=== PATIENT | male | born 2000 | race Caucasian/White ===

== ENCOUNTER 2022-09-18 15:05 | Emergency (ER) | payer MEDICAID, SELFPAY ==
[2022-09-18 15:09] VITALS: BP 108/83; PULSE 73; RESP 18; TEMP 36.5; O2SAT 100
--- NOTE | 2022-09-18 15:53 | ED.GENADUL_ITS ---
Discharge Plan Disposition Patient Disposition: Home Condition: Stable Discharge Details Clinical Impression: Acute alcoholic gastritis Primary Care Provider: Unknown,Unknown ED Provider: Leah Cm Home Meds and New Rx's Prescriptions: No Action No Known Home Meds Discharge Instructions Instructions: Gastritis (ED) Additional Instructions: Take the nausea medication three times daily as needed for nausea and vomiting. Take 20-30 minutes before eating or drinking anything. Increase oral fluids including electrolyte solution such as Gatorade or similar. Follow up with primary care provider in 3-5 days. Return to ED sooner if any worsening or concerns. Increase oral fluids. Stand Alone Forms: Work Release Medical Decision Making 22-year-old male presents to the ER with chief complaint of nausea vomiting since this morning. He reports that he initially thought it was a hangover as he did drink alcohol last night. However it has continued throughout the day. He does also complain of small amount of left upper quadrant abdominal pain mild diarrhea reports 2 episodes of diarrhea today. He endorses chills denies any fever or problems urinating or burning with urination. No history of abdominal surgeries. Work-up ordered including CBC CMP magnesium and lipase. Differential diagnosis includes acute gastritis due to alcohol consumption, pancreatitis, gastroenteritis. CBC shows slight elevation of the white blood cell count 11.21, absolute neutrophils 9.15 CMP largely within normal limits liver enzymes within normal limits, magnesium slightly low at 1.6 lipase within normal limits at 17. No evidence on labs for pancreatitis. Patient reports after fluids and Zofran he is feeling much better. We will p.o. challenge him. Plan is to discharge if p.o. challenge successful. 1657: Informed by staff nurse midwife that patient woke up and had 2 episodes of emesis. An additional 4 mg of Zofran ordered, we will hold off on the p.o. trial. And a additional liter of normal saline ordered. CT abdomen pelvis ordered. CT within normal limits. Patient discharged in hemodynamically stable condition with Zofran to go. This text was generated using [employer] system, please disregard any oddities of phrase or misspellings. Imaging Data Radiologic Study: Imaging: CT Scan Radiologist's impression: FINDINGS: Lungs: The visualized lung bases are clear. Liver: Normal. No mass. Gallbladder and bile ducts: Normal. No calcified stones. No ductal dilation. Pancreas: Normal. No ductal dilation. Spleen: Normal. No splenomegaly. Adrenal glands: Normal. No mass. Kidneys and ureters: Normal. No hydronephrosis. Stomach and bowel: Unremarkable. No obstruction. No mucosal thickening. Appendix: No evidence of appendicitis. Intraperitoneal space: Unremarkable. No free air. No significant fluid collection. Vasculature: Unremarkable. No abdominal aortic aneurysm. Lymph nodes: Unremarkable. No enlarged lymph nodes. Urinary bladder: Unremarkable as visualized. Reproductive: Unremarkable as visualized. Bones/joints: Unremarkable. No acute fracture. Soft tissues: Unremarkable. IMPRESSION: No acute findings Lab Data Lab results reviewed: Yes I reviewed the patient's lab results. Labs: Laboratory Tests Range/Units 09/18/22 09/18/22 16:00 16:00 WBC (4.4-10.8) 10^3/uL 11.21 H RBC (4.36-5.78) 10^6/uL 4.98 Hgb (13.5-17.5) g/dL 14.4 Hct (40.0-50.0) % 41.4 MCV (80-95) fL 83 MCH (27.0-33.0) pg 28.9 MCHC (32.0-36.0) % 34.8 RDW (11.8-14.1) % 12.2 Plt Count (130-400) 10^3/uL 257 MPV (8.0-11.0) fL 10.4 Immature Gran % 0.3 Neutrophils % 81.6 Lymphocytes % 11.4 Monocytes % 6.1 Eosinophils % 0.1 Basophils % 0.5 Nucleated RBC % (0.0-0.3) % 0.0 Absolute Neutrophils (1.2-6.7) 10^3/uL 9.15 H Absolute Lymphocytes (1.2-3.4) 10^3/uL 1.28 Absolute Monocytes (0.1-0.8) 10^3/uL 0.68 Absolute Eosinophils (0.0-0.7) 10^3/uL 0.01 Absolute Basophils (0.0-0.2) 10^3/uL 0.06 Sodium (136-145) mmol/L 142 Potassium (3.5-5.1) mmol/L 4.0 Chloride (98-107) mmol/L 105 Carbon Dioxide (21.0-32.0) mmol/L 25.3 Anion Gap (3-11) mmol/L 11.7 H BUN (7-18) mg/dL 15 Creatinine (0.70-1.30) mg/dL 0.9 Est GFR (CKD-EPI 2020) (mL/min/1.73m2) 122.31 Glucose (74-106) mg/dL 107 H Calcium (8.5-10.1) mg/dL 9.4 Magnesium (1.8-2.4) mg/dL 1.6 L Total Bilirubin (0.2-1.0) mg/dL 0.9 AST (15-37) U/L 21 ALT (16-63) U/L 23 Alkaline Phosphatase (46-116) U/L 41 L Total Protein (6.4-8.2) g/dL 8.1 Albumin (3.4-5.0) g/dL 4.8 Lipase (16-77) U/L 17 HPI General Mode of arrival: ambulatory . Date/Time Provider Initiated Documentation: 09/18/22 15:36 . Limitations to Documentation: no limitations . Information obtained by: patient, RN notes reviewed and old records reviewed . HPI Narrative: 22-year-old male presents to the ER with chief complaint of nausea vomiting since this morning. He reports that he initially thought it was a hangover as he did drink alcohol last night. However it has continued throughout the day. He does also complain of small amount of left upper quadrant abdominal pain mild diarrhea reports 2 episodes of diarrhea today. He endorses chills denies any fever or problems urinating or burning with urination. No history of abdominal surgeries. Related Data Home Medications Medication Instructions Recorded Confirmed Unknown [No Known Home Meds] 09/18/22 09/18/22 Allergies Allergy/AdvReac Type Severity Reaction Status Date / Time Penicillins Allergy Unknown Hives Unverified 09/18/22 15:13 General Stated Complaint: Nausea/Vomit/Diar GUERO: 3 Review of Systems All systems reviewed & are unremarkable except as noted in HPI and below Gastrointestinal Gastrointestinal: Reports abdominal pain, Reports diarrhea, Reports nausea and Reports vomiting PFSH All Active Problems (Updated 09/18/22 @ 16:56 by Leah Cm NP) Acute alcoholic gastritis (Acute) Social History Smoking risk assessment performed?: No Alcohol Intake: current Alcohol Intake frequency: holidays/special occasions only Drug use: Occasionally Substance use type: marijuana Do you feel safe at home: Yes Do you feel safe in your relationship?: Yes Exam Narrative Exam Narrative: Constitutional: Alert and oriented x3. Appears stated age. Normal body habitus. Head: Normocephalic, no trauma. Eyes: Pupils PERRL, Red reflex noted, EOM's intact. Eyelids symmetrical without lesions, discharge, or swelling. ENT: Bilateral TM's WNL, External ear normal to inspection, no mastoid TTP, swelling, or erythema, Nasal turbinates WNL, no nasal discharge. Normal dentiti on, Posterior pharynx WNL, no exudate. Chest: RRR, Normal S1, S2, distal pulses intact. Resp: Lungs clear to auscultation bilaterally, no wheezes, rales, or rhonchi. Abdomen: Soft, non-distended, Normoactive bowel sounds all 4 quads. Musculoskeletal: Normal gait, 5/5 strength to all four extremities. Skin: No suspicious rashes or lesions. Capillary refill less than 2 sec. Neurologic: Cranial nerves II-XII intact. Alert and oriented x 3. Motor: No deficits noted. Sensory: Intact bilaterally all 4 extremities. Reflexes: DTR's intact bilaterally.. Hematologic/Lymphatic: No ecchymosis, no lymphadenopathy. Course Vital Signs Vital signs: Vital Signs Temperature 36.5 C 09/18/22 15:09 Pulse 73 09/18/22 15:09 Respiratory Rate 18 09/18/22 15:09 Blood Pressure 108/83 09/18/22 15:09 Pulse Oximetry 100 09/18/22 15:09 Temperature 36.5 C 09/18/22 15:09 Temperature Source Oral 09/18/22 15:09 Pulse 73 09/18/22 15:09 Respiratory Rate 18 09/18/22 15:09 Respiratory Effort Normal, Non-Labored 09/18/22 15:13 Blood Pressure 108/83 09/18/22 15:09 Blood Pressure Position Sitting 09/18/22 15:09 Pulse Oximetry 100 09/18/22 15:09 Oxygen Delivery Method Room Air 09/18/22 15:09 Oxygen Flow Rate 0 09/18/22 15:09
[2022-09-18] MEDS: Ondansetron 4 MG/2 ML VIAL IVP ×2 (15:58→17:06)
[2022-09-18] MEDS: Normal Saline 1,000 ML 1000 ML IV ×2 (15:58→17:36)
[2022-09-18 16:12] LABS: Abs Immature Grans 0.03 10^3/uL (0.0-0.06); Absolute Basophil Count 0.06 10^3/uL (0.0-0.2); Absolute Eosinophil Count 0.01 10^3/uL (0.0-0.7); Absolute Lymphocyte Count 1.28 10^3/uL (1.2-3.4); Absolute Monocyte Count 0.68 10^3/uL (0.1-0.8); Absolute Neutrophil Count 9.15 10^3/uL (1.2-6.7); Basophils % 0.5; Eosinophils % 0.1; HCT 41.4 % (40.0-50.0); HGB 14.4 g/dL (13.5-17.5); Immature Grans % 0.3; Lymphocytes % 11.4; MCH 28.9 pg (27.0-33.0); MCHC 34.8 % (32.0-36.0); MCV 83 fL (80-95); MPV 10.4 fL (8.0-11.0); Monocytes % 6.1; Neutrophils % 81.6; Platelet Count 257 10^3/uL (130-400); RBC 4.98 10^6/uL (4.36-5.78); RDW 12.2 % (11.8-14.1); RDW-SD 37.1 fL; WBC 11.21 10^3/uL (4.4-10.8)
[2022-09-18 16:27] LABS: ALT 23 U/L (16-63); AST 21 U/L (15-37); Albumin 4.8 g/dL (3.4-5.0); Alkaline Phosphatase 41 U/L (46-116); Anion Gap 11.7 mmol/L (3-11); BUN 15 mg/dL (7-18); Bilirubin, Total 0.9 mg/dL (0.2-1.0); CO2 25.3 mmol/L (21.0-32.0); CREATININE 0.9 mg/dL (0.70-1.30); Calcium 9.4 mg/dL (8.5-10.1); Chloride 105 mmol/L (98-107); Estimated GFR 122.31 (mL/min/1.73m2); Glucose 107 mg/dL (74-106); Lipase 17 U/L (16-77); Magnesium 1.6 mg/dL (1.8-2.4); Sodium 142 mmol/L (136-145); Total Protein 8.1 g/dL (6.4-8.2)
--- NOTE | 2022-09-18 16:37 | NUR.NOTE ---
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 RN will call report.
--- NOTE | 2022-09-18 16:45 | DI.CT_ITS ---
Exam(s) CT ABDOMEN PELVIS W EXAM: CT ABDOMEN PELVIS W CLINICAL HISTORY: Abdominal pain, nausea, vomiting. TECHNIQUE: Imaging Protocol: Axial computed tomography images with coronal and sagittal reformatted images were created and reviewed CONTRAST MATERIAL: Intravenous: Omnipaque-350 100cc Oral: None COMPARISON: No exams were available for comparison FINDINGS: VISUALIZED LUNG BASES: No nodules nor pleural effusions evident. ABDOMEN: There is no ascites. LIVER: There are no focal hepatic lesions evident. No dilated intrahepatic ducts. GALLBLADDER/BILIARY: No obvious gallbladder pathology. CBD is not dilated. PANCREAS: No evidence of pancreatic mass nor dilatation of the pancreatic duct. SPLEEN: Spleen is not enlarged. No obvious intrasplenic lesions. Splenic and portal veins are paten t. ADRENALS: There are no significant adrenal masses. KIDNEYS:No cysts evident. No solid renal masses. No calculi nor hydronephrosis.. ABDOMINAL AORTA: Abdominal aorta is not enlarged. LYMPH NODES:There is no retroperitoneal nor paraaortic adenopathy. ABDOMINAL WALL: No evidence of significant anterior abdominal wall nor inguinal hernia. GI: There is no evidence of bowel obstruction, free air, nor abscess. PELVIS: GI: No evidence of appendicitis.No evidence of sigmoid diverticulitis. LYMPH NODES: There is no intrapelvic nor inguinal adenopathy. REPRODUCTIVE: Prostate not enlarged. Seminal vesicles unremarkable. URINARY BLADDER: No calculi nor obvious masses evident OSSEOUS: No fractures and no significant osseous lesions. IMPRESSION: 1. No significant acute findings on this CT scan of the abdomen pelvis. RADIATION DOSE DELIVERED: 500.29mGy.cm Total DLP DATA REPOSITORY: All CT scans at this facility are submitted to the National Radiology Data Registry (NRDR) Dose Index Registry (DIR) with the [employer] ([employer]). RADIATION OPTIMIZATION: All CT scans at this facility use at least one of these dose optimization te chniques: automated exposure control; mA and/or kV adjustment per patient size (includes targeted exa ms where dose is matched to clinical indication); or iterative reconstruction.
[2022-09-18] MEDS: Omnipaque 350 MG/ML 100 ML BTL IJ (17:16)
[2022-09-18] MEDS: Normal Saline - Diluent 50 ML VIAL IJ (17:16)
[2022-09-18 17:40] VITALS: BP 108/54; PULSE 82; RESP 18; O2SAT 100
--- NOTE | 2022-09-18 17:41 | DI.VRAD_ITS ---
PROCEDURE INFORMATION: Exam: CT Abdomen And Pelvis With Contrast Exam date and time: 09/18/2022 5:20 PM Age: 22 years old Clinical indication: Other: Abd pain, nausea, vomiting TECHNIQUE: Imaging protocol: Computed tomography of the abdomen and pelvis with contrast. Contrast material: 350; Contrast volume: 100 ml; Contrast route: INTRAVENOUS (IV); COMPARISON: No relevant prior studies available. FINDINGS: Lungs: The visualized lung bases are clear. Liver: Normal. No mass. Gallbladder and bile ducts: Normal. No calcified stones. No ductal dilation. Pancreas: Normal. No ductal dilation. Spleen: Normal. No splenomegaly. Adrenal glands: Normal. No mass. Kidneys and ureters: Normal. No hydronephrosis. Stomach and bowel: Unremarkable. No obstruction. No mucosal thickening. Appendix: No evidence of appendicitis. Intraperitoneal space: Unremarkable. No free air. No significant fluid collection. Vasculature: Unremarkable. No abdominal aortic aneurysm. Lymph nodes: Unremarkable. No enlarged lymph nodes. Urinary bladder: Unremarkable as visualized. Reproductive: Unremarkable as visualized. Bones/joints: Unremarkable. No acute fracture. Soft tissues: Unremarkable. IMPRESSION: No acute findings Dictated and Authenticated by: Daniel Shoemaker MD. Ordering:TERRY Lynn MD
[2022-09-18 18:07] VITALS: BP 121/72; PULSE 82; RESP 16; O2SAT 99
--- NOTE | 2022-09-18 18:09 | NUR.NOTE ---
Nursing Note: Thorough discharge instructions provided. Pt verbalized understanding instructions. Pt thanked this nurse for care. Pt ambulated to waiting room in no signs of distress.
== END 2022-09-18 18:10 | disposition home or self-care (01) ==
PROVIDERS: Emergency Provider Registered Nurse Emergency
DX: K29.20 Alcoholic gastritis without bleeding (principal); R11.2 Nausea with vomiting, unspecified; R19.7 Diarrhea, unspecified; R10.12 Left upper quadrant pain
CPT/HCPCS: 80053; 83690; 96361; 96374; 96376; 99285; 74177; 83735; 85025; 99284; J2405; J3490